=== PATIENT | female | born 1995 | race Asian ===

== ENCOUNTER 2024-12-12 14:32 | Outpatient (CLI) | payer BC ==
[2024-12-12 15:07] LABS: LEUKOCYTE ESTERASE ,URINE NEGATIVE (Neg); NITRITES, URINE NEGATIVE (Neg); OCCULT BLOOD,URINE NEGATIVE (Neg)
[2024-12-12 15:10] LABS: MEAN PLATELET VOLUME 7.3 FL (7.4-10.4); RED CELL DISTRIBUTION WIDTH 13.5 % (11.5-14.5)
[2024-12-12 15:12] LABS: UA COLLECTION TYPE NON-SPECIFIED
[2024-12-12 15:13] LABS: SQUAMOUS EPITHELIAL CELL,UR MANY /LPF (FEW)
[2024-12-12 15:14] LABS: MUCUS STRANDS FEW /LPF (Neg)
[2024-12-12 15:35] LABS: CHOL/HDL RATIO 2.3 (0.00-4.99); CREATININE 0.89 MG/DL (0.40-0.90); LDL CHOLESTEROL 97 MG/DL (50-100); TOTAL CARBON DIOXIDE 30.5 MMOL/L (24-32); eGFR 76 ML/MIN
[2024-12-14 15:35] LABS: CREATININE, URINE 197.4 mg/dL (Not Estab.); MICROALB/CRT, RATIO 2.0 mg/g creat (0-29); MICROALBUMIN,U,RANDOM 4.6 ug/mL (Not Estab.)
== END 2024-12-12 23:59 | disposition home or self-care (01) ==
LOC: RAD 14:32
PROVIDERS: ATTEND Hospitalist
DX: E10.9 Type 1 diabetes mellitus without complications (principal); R00.2 Palpitations; E28.2 Polycystic ovarian syndrome
CPT/HCPCS: 36415; 80053; 80061; 81001; 82043; 82570; 84439; 84443; 85025

== ENCOUNTER 2025-02-24 07:45 | Outpatient (CLI) | payer BC ==
[~2025-02-24] VITALS: Ht 157.5 cm; Wt 126.0 kg
[2025-02-24] MEDS ORDERED: regadenoson 0.4mg/5ml syringe IV ONE (08:25)
[2025-02-24] MEDS ORDERED: aminophylline inj. 0 ML IV ONE (09:10)
[2025-02-24 09:15] VITALS: BP 114/74; PULSE 63; RESP 16; O2SAT 100
[2025-02-24 09:16] VITALS: BP 116/80; PULSE 99; RESP 16; O2SAT 100
[2025-02-24 09:17] VITALS: BP 98/81; PULSE 94; RESP 16; O2SAT 100
[2025-02-24 09:18] VITALS: BP 109/72; PULSE 87; RESP 16; O2SAT 100
[2025-02-24 09:19] VITALS: BP 109/72; PULSE 84; RESP 16; O2SAT 100
--- NOTE | 2025-02-24 12:15 | RADIOLOGY REPORT ---
Procedure: NM NM BRISEIDA SCAN Exam Date: 02/24/2025 08:34 AM Reason for study/Clinical History: CHEST PAIN,INAPPROPRIATE SINUS TACHYCARDIA Comparison Study: None Myocardial Perfusion Study with SPECT Technique: The patient received an intravenous injection of 8.2 mCi of technetium-99m sestamibi while at rest. After a short delay, SPECT tomographic images of the heart were obtained. The patient then went to the stress lab where they received an intravenous infusion of 0.[address] andard protocol. 35.3 mCi of technetium-99m sestamibi was injected intravenously immediately after the start of the lexiscan infusion. Gated SPECT tomographic images of the heart were acquired and processed. Findings: No reversible perfusion defect. End diastolic volume: 65 mL End systolic volume: 19 mL The left ventricular ejection fraction is 71 %. (normal greater than 50%) Impression: No reversible defect. The left ventricular ejection fraction is 71 %.
== END 2025-02-24 23:59 | disposition home or self-care (01) ==
LOC: NM 07:45
PROVIDERS: ATTEND Internal Medicine Interventional Cardiology
DX: R07.9 Chest pain, unspecified (principal); I47.11 Inappropriate sinus tachycardia, so stated; R00.2 Palpitations; I47.9 Paroxysmal tachycardia, unspecified; Z47.89 Encounter for other orthopedic aftercare
CPT/HCPCS: 78452; 93017; A9500; J2785; J0280